=== PATIENT | male | born 1995 | race African-American/Black ===

== ENCOUNTER → 2018-04-20 | Outpatient (CLI) | payer OTHER ==
--- NOTE | 2018-04-20 18:55 | RADIOLOGY IMAGING REPORT ---
FACILITY: [facility] - [place] PATIENT NAME: Chris Rojas : 1995 MR: [id number] V: [id number] EXAM DATE: ORDERING PHYSICIAN: STEFAN WILLSON TECHNOLOGIST: Location: [facility] - [place] Patient: Chris Rojas : 1995 Visit/Account:[id number] Date of Sevice: 04/20/2018 CHEST PA AND LAT COMPARISONS: None. ADDITIONAL PERTINENT HISTORY: Positive TB test FINDINGS: Cardiomediastinal silhouette: Negative. Pulmonary vasculature: Negative. Lung lester: Negative. Pleural spaces: Negative. Osseous structures: Negative. Surrounding soft tissues: Negative. IMPRESSION: Normal views of the chest. Report Dictated By: Constantino Gonzalez MD at 04/20/2018 6:51 PM Report E-Signed By: Constantino Gonzalez MD at 04/20/2018 6:52 PM WSN:[id number]
== END ==
LOC: RAD 16:19
PROVIDERS: ATTEND Pediatrics Adolescent Medicine
DX: R76.12 Nonspecific reaction to cell mediated immunity measurement of gamma interferon antigen response without active tuberculosis (principal)
CPT/HCPCS: 71046